=== PATIENT | male | born 1975 | race Caucasian/White ===

== ENCOUNTER 2019-07-13 10:47 | Emergency (ER) | payer OTHER ==
[2019-07-13 10:52] VITALS: BP 151/63; PULSE 66; RESP 20; TEMP 98.5
--- NOTE | 2019-07-13 11:32 | ED ---
General Adult HPI - General Chief complaint: Back Pain/Injury Stated complaint: Back and hip pain, infection Time Seen by Provider: 07/13/19 11:05 Source: patient Mode of arrival: ambulatory Limitations: no limitations - History of Present Illness Initial comments: Dictation was produced using [employer] dictation software. please excuse any grammatical, word or spelling errors. Chief Complaint: 44-year-old male presents with hip and back pain. History of Present Illness: She is a 44-year-old male he is a poor historian. He states he has hip and back pain. Patient reports that he lives in [place] and that he was admitted to the hospital for 7 months for whole-body infection of his heart, back, hips and blood. Patient states he is here because he is up and her friend. 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 Patient states he's been having pain for several months now. He does report seeing a pain specialist in [place]. Patient denies any fever, chills or night sweats. Denies any nausea or vomiting. The ROS documented in this emergency department record has been reviewed and confirmed by me. Those systems with pertinent positive or negative responses have been documented in the HPI. All other systems are other negative and/or noncontributory. PHYSICAL EXAM: General Impression: Alert and oriented x3, not in acute distress HEENT: Normocephalic atraumatic, extra-ocular movements intact, pupils equal and reactive to light bilaterally, mucous membranes moist. Cardiovascular: Heart regular rate and rhythm, S1&S2 audible, no murmurs, rubs or gallops Chest: Lungs clear to auscultation bilaterally, no rhonchi, no wheeze, no rales Abdomen: Bowel sounds present, abdomen soft, non-tender, non-distended, no organomegaly Musculoskeletal: Pulses present and equal in all extremities, no peripheral edema Motor: no focal deficits noted Neurological: CN II-XII grossly intact, no focal motor or sensory deficits noted Skin: Intact with no visualized rashes Psych: Normal affect and mood ED course: 44-year-old male presents with chief complaint of hip and back pain. He reports that he was admitted to the hospital for 7 months for total body infection. Ends upon arrival are within acceptable limits. Patient is exhibiting drug-seeking behavior. History is performed. Patient has multiple narcotic medications that have been filled for the last several months seen on [facility] report. Patient has history of methadone use. Basic labs were ordered however patient eloped prior to completion of medical evaluation. - Related Data Allergies Allergy/AdvReac Type Severity Reaction Status Date / Time No Known Allergies Allergy Verified 07/13/19 10:52 Review of Systems ROS Statement: Those systems with pertinent positive or pertinent negative responses have been documented in the HPI. ROS Other: All systems not noted in ROS Statement are negative. Past Medical History Additional Past Medical History / Comment(s): Pt had infection to entire body. History of Any Multi-Drug Resistant Organisms: MRSA Past Surgical History: No Surgical Hx Reported Past Psychological History: No Psychological Hx Reported Smoking Status: Current every day smoker Past Alcohol Use History: None Reported Past Drug Use History: Marijuana General Exam Limitations: no limitations Course Vital Signs 07/13/19 10:49 Temperature 98.5 F Pulse Rate 66 Respiratory 20 Rate Blood Pressure 151/63 O2 Sat by Pulse 99 Oximetry Disposition Clinical Impression: Pain Disposition: Left Against Medical Advice Condition: Good Referrals: None,Stated [Primary Care Provider] - 1-2 days Time of Disposition: 11:54
== END 2019-07-13 11:46 | disposition left against medical advice (07) ==
LOC: EC 10:47
DX: M54.9 Dorsalgia, unspecified (principal); M25.559 Pain in unspecified hip; Z76.5 Malingerer [conscious simulation]; F11.11 Opioid abuse, in remission; F17.200 Nicotine dependence, unspecified, uncomplicated; Z86.14 Personal history of Methicillin resistant Staphylococcus aureus infection; Z86.19 Personal history of other infectious and parasitic diseases; Z53.20 Procedure and treatment not carried out because of patient's decision for unspecified reasons
CPT/HCPCS: 99282